=== PATIENT | female | born 1995 | race Caucasian/White ===

== ENCOUNTER 2018-12-24 13:52 | Emergency (ER) | payer SELFPAY ==
[~2018-12-24] VITALS: Ht 162.6 cm; Wt 75.0 kg
[2018-12-24] MEDS ORDERED: KETOROLAC 60MG/2ML VIAL IM ONE (15:30)
[2018-12-24 18:00] VITALS: BP 131/76
== END 2018-12-24 18:17 | disposition home or self-care (01) ==
LOC: ER 13:52
DX: M54.5 Low back pain (principal)
CPT/HCPCS: 81025; 96372; 99283; J1885

== ENCOUNTER 2021-03-06 12:28 | Emergency (ER) | payer MEDICAID ==
[~2021-03-06] VITALS: Ht 162.6 cm; Wt 77.0 kg
[2021-03-06 12:54] VITALS: BP 137/74
[2021-03-06] MEDS ORDERED: IBUP-2029 MT (13:42)
== END 2021-03-06 14:02 | disposition home or self-care (01) ==
LOC: ER 12:28
DX: M79.605 Pain in left leg (principal)
CPT/HCPCS: 99282